=== PATIENT | female | born 2000 | race Caucasian/White ===

== ENCOUNTER 2018-01-05 17:01 | Emergency (ER) | payer MEDICAID ==
[2018-01-05 17:41] LABS: PLATELET COUNT 241 10^3/uL (150-400)
--- NOTE | 2018-01-05 22:20 | EDPHY ---
H & P Stated Complaint: SI x 2-3 wks;has a plan;long hx psych problems Time Seen by Provider: 01/05/18 17:08 HPI/ROS: Chief complaint: Suicidal ideation History of present illness: This is a 17-year-old female who presents to the emergency department for suicidal ideation. Patient reports a history of depression. She has a history of suicidal ideation. She states over the last few weeks she started to feel worse. She is having new thoughts of hurting herself. She has thought about taking benzodiazepines with alcohol. She has also felt frustrated over the last few weeks and has been angry at people and wanted to hurt them. She has no specific person in mind. There was no actual homicidal ideation. No current illness or injury. Review of systems: A 10 point review of systems was obtained and other than described above was not - Personal History LMP (Females 10-55): Extended Cycle BCP/Inj Current Tetanus Diphtheria and Acellular Pertussis (TDAP): Yes - Medical/Surgical History Other PMH: Psych - Social History Smoking Status: Never smoked - Physical Exam Exam: General Appearance: Alert, no distress. Eyes: Pupils equal and round no pallor or injection. ENT, Mouth: Mucous membranes moist. Respiratory: There are no retractions, lungs are clear to auscultation. Cardiovascular: Regular rate and rhythm. Gastrointestinal: Abdomen is soft and non tender, no masses, bowel sounds normal. Neurological: Alert and oriented x4. Cranial nerves 2-12 grossly intact. Strength and sensation intact and symmetrical. Skin: Warm and dry, no rashes. Musculoskeletal: Neck is supple non tender. Extremities are symmetrical, full range of motion. Psychiatric: Patient is oriented X 3, there is no agitation. Constitutional: Initial Vital Signs Temperature (C) 36.7 C 01/05/18 17:04 Heart Rate 92 01/05/18 17:04 Respiratory Rate 16 01/05/18 17:04 Blood Pressure 126/88 H 01/05/18 17:04 O2 Sat (%) 98 01/05/18 17:04 O2 Delivery Mode Room Air Allergies/Adverse Reactions: gluten Allergy (Verified 01/05/18 17:04) Home Medications: Medication Instructions Recorded NK [No Known Home Meds] 01/05/18 Medical Decision Making ED Course/Re-evaluation: Patient seen under the supervision of my secondary supervising physician Dr. Ankit Mckenzie. Patient presents with suicidal ideation. She is placed on a detainer. She is medically evaluated and cleared for psychiatric evaluation. The psychiatric team has seen the patient and feel she is safe for discharge home. She is discharged home with referral information. Return precautions are given. Differential Diagnosis: Included but not limited to substance abuse, anxiety, depression, bipolar - Data Points Laboratory Results: Laboratory Results 01/05/18 17:15 18 17:15 18 18 01/05/18 17:15 17:15 17:15 WBC RBC Hgb Hct MCV MCH MCHC RDW Plt Count MPV Neut % (Auto) Lymph % (Auto) [place] % (Auto) Eos % (Auto) Baso % (Auto) Nucleat RBC Rel Count Absolute Neuts (auto) Absolute Lymphs (auto) Absolute Monos (auto) Absolute Eos (auto) Absolute Basos (auto) Absolute Nucleated RBC Immature Gran % Immature Gran # Sodium 143 mEq/L mEq/L (135-145) Potassium 3.6 mEq/L mEq/L (3.5-5.2) Chloride 103 mEq/L mEq/L (97-110) Carbon Dioxide 25 mEq/l mEq/l (22-31) Anion Gap 15 mEq/L mEq/L (8-16) BUN 17 mg/dL mg/dL (7-23) Creatinine 0.8 mg/dL mg/dL (0.6-1.0) Estimated GFR > 60 Glucose 71 mg/dL mg/dL (70-100) Calcium 9.7 mg/dL mg/dL (8.5-10.4) Beta HCG, Qual NEGATIVE Salicylates < 1.0 mg/dL L mg/dL (2.0-20.0) Urine Opiates Screen NEGATIVE (NEGATIVE) Acetaminophen < 10 mcg/mL L mcg/mL (10-30) Urine Barbiturates NEGATIVE (NEGATIVE) Ur Phencyclidine Scrn NEGATIVE (NEGATIVE) Ur Amphetamine Screen NEGATIVE (NEGATIVE) U Benzodiazepines Scrn NEGATIVE (NEGATIVE) Urine Cocaine Screen NEGATIVE (NEGATIVE) U Marijuana (THC) Screen NEGATIVE (NEGATIVE) Ethyl Alcohol < 10 mg/dL mg/dL (0-10) 01/05/18 17:15 WBC 6.89 10^3/uL 10^3/uL (3.80-9.50) RBC 5.59 10^6/uL H 10^6/uL (4.18-5.33) Hgb 16.6 g/dL H g/dL (12.6-16.3) Hct 49.7 % H % (38.0-47.0) MCV 88.9 fL fL (81.5-99.8) MCH 29.7 pg pg (27.9-34.1) MCHC 33.4 g/dL g/dL (32.4-36.7) RDW 12.6 % % (11.5-15.2) Plt Count 241 10^3/uL 10^3/uL (150-400) MPV 10.0 fL fL (8.7-11.7) Neut % (Auto) 53.5 % % (39.3-74.2) Lymph % (Auto) 38.0 % % (15.0-45.0) R[place] % (Auto) 7.1 % % (4.5-13.0) Eos % (Auto) 0.9 % % (0.6-7.6) Baso % (Auto) 0.4 % % (0.3-1.7) Nucleat RBC Rel Count 0.0 % % (0.0-0.2) Absolute Neuts (auto) 3.68 10^3/uL 10^3/uL (1.70-6.50) Absolute Lymphs (auto) 2.62 10^3/uL 10^3/uL (1.00-3.00) Absolute Monos (auto) 0.49 10^3/uL 10^3/uL (0.30-0.80) Absolute Eos (auto) 0.06 10^3/uL 10^3/uL (0.03-0.40) Absolute Basos (auto) 0.03 10^3/uL 10^3/uL (0.02-0.10) Absolute Nucleated RBC 0.00 10^3/uL 10^3/uL (0-0.01) Immature Gran % 0.1 % % (0.0-1.1) Immature Gran # 0.01 10^3/uL 10^3/uL (0.00-0.10) Sodium Potassium Chloride Carbon Dioxide Anion Gap BUN Creatinine Estimated GFR Glucose Calcium Beta HCG, Qual Salicylates Urine Opiates Screen Acetaminophen Urine Barbiturates Ur Phencyclidine Scrn Ur Amphetamine Screen U Benzodiazepines Scrn Urine Cocaine Screen U Marijuana (THC) Screen Ethyl Alcohol Departure - Departure Disposition: Home, Routine, Self-Care Clinical Impression: Suicidal ideation Condition: Good Instructions: Suicide Prevention for Adults (ED) Additional Instructions: Follow-up with the resources you were given as well as your own doctors this week If you feels symptoms are worsening or new symptoms develop please return to the emergency room for recheck Referrals: NONE *PRIMARY CARE P,. [Primary Care Provider] - As per Instructions [facility] [Clinic] - As per Instructions
[2018-01-05 22:42] VITALS: BP 105/75
== END 2018-01-05 22:42 | disposition home or self-care (01) ==
DX: R45.851 Suicidal ideations (principal)
CPT/HCPCS: 80305; G0480